=== PATIENT | male | born 1945 | race Caucasian/White ===

== ENCOUNTER → 2017-10-10 09:14 | Outpatient (POV) | payer MEDICARE, OTHER, SELFPAY | PROVIDERS: Visit Provider Podiatrist | DX: Z00.00 Encounter for general adult medical examination without abnormal findings (principal) ==

== ENCOUNTER → 2017-12-23 07:41 | Outpatient (CLI) | payer MEDICARE, SELFPAY ==
--- NOTE | 2017-12-23 07:44 | CI_ITS ---
Cerebrovascular Exam Indications: 780.4 Dizziness and giddiness. IMPRESSIONS 1. The bilateral vertebral arteries are patent with normal antegrade flow. 2. Study suggests less than 20% stenosis involving the right internal carotid artery and the left internal carotid artery. Carotid duplex study. Complete study and Doppler flow study including spectral analysis, color and salas scale imaging. Height: Height: 175.3cm. Height: 69in. Weight: Weight: 79.4kg. Weight: 174.6lb. Body mass index: BMI: 25.8kg/m^2. Body surface area: BSA: 1.98m^2. Location: Vascular laboratory. Patient status: Outpatient. Tables: Arterial flow: + +--------+--------+ Location V sys V ed + +--------+--------+ Right CCA - proximal 97.4cm/s 22cm/s + +--------+--------+ Right CCA - distal 90.4cm/s 22.8cm/s + +--------+--------+ Right ECA 77.3cm/s -------- + +--------+--------+ Right ICA - proximal 74.6cm/s 21.2cm/s + +--------+--------+ Right ICA - mid 58.9cm/s 20.4cm/s + +--------+--------+ Right ICA - distal 97cm/s 30.9cm/s + +--------+--------+ Right vertebral 37.9cm/s -------- + +--------+--------+ Left CCA - proximal 98.4cm/s 20.4cm/s + +--------+--------+ Left CCA - distal 76.6cm/s 19cm/s + +--------+--------+ Left ECA 133cm/s -------- + +--------+--------+ Left ICA - proximal 63.2cm/s 21.8cm/s + +--------+--------+ Left ICA - mid 81.5cm/s 26cm/s + +--------+--------+ Left ICA - distal 82.9cm/s 26.7cm/s + +--------+--------+ Left vertebral 46.4cm/s -------- + +--------+--------+ Velocity ratios: + + + + + + Right, V sys Right, V ed Left, V sys Left, V ed + + + + + + Max ICA/dist CCA 1.07 1.36 1.08 1.41 + + + + + + (Report amended ) Electronically signed by: Viral Weeks [id number]
--- NOTE | 2017-12-23 08:34 | US_ITS ---
US aorta HISTORY: Screening for aortic aneurysm ITS.REASON: AAA WITHOUT RUPTURE FINDINGS: Upper abdominal aorta: 1.8 x 1.3 cm Mid abdominal aorta: 1.6 x 1.4 cm Lower abdominal aorta: 1 x 1 cm Common iliacs: Less than 1 cm each IMPRESSION: Unremarkable abdominal ultrasound with no evidence of abdominal aortic aneurysm
== END ==
PROVIDERS: PCP Family Medicine; Visit Provider Nurse Practitioner Family
DX: R42 Dizziness and giddiness (principal)
CPT/HCPCS: 76770; 93880

== ENCOUNTER → 2018-10-28 08:39 | Outpatient (POV) | payer MEDICARE, SELFPAY | PROVIDERS: Visit Provider Dermatology | DX: Z00.00 Encounter for general adult medical examination without abnormal findings (principal) ==

== ENCOUNTER → 2019-05-05 08:53 | Outpatient (POV) | payer MEDICARE, SELFPAY | PROVIDERS: Visit Provider Dermatology | DX: Z00.00 Encounter for general adult medical examination without abnormal findings (principal) ==

== ENCOUNTER → 2020-05-10 10:14 | Outpatient (POV) | payer MEDICARE, SELFPAY | PROVIDERS: Visit Provider Dermatology | DX: Z00.00 Encounter for general adult medical examination without abnormal findings (principal) ==

== ENCOUNTER 2020-08-25 16:38 | Emergency (ER) | payer MEDICARE, SELFPAY ==
[2020-08-25 16:50] VITALS: BP 133/76; PULSE 86; RESP 16; TEMP 36.6; O2SAT 98; BMI 28.8
--- NOTE | 2020-08-25 17:05 | HMH.EDUTC ---
[facility] [place] Clinical Impression: Encounter for laboratory testing for COVID-19 virus Disposition: Home, Self-Care Condition on Discharge: Good Instructions: DI for COVID-19 (Suspected or Confirmed ), Coronavirus Disease 2019, Preventing the Spread of Coronavirus Discharge Instructions Additional Instructions: *Monitor Temp, Over the counter Motrin or Tylenol as directed/as needed Tylenol every 4 hours and Motrin every 6 hours (as long as your family doctor has told you that you can take it) for fever or pain. and straight to ER if unable to lower temp less than 101.0 after medication given Follow up IMMEDIATELY for new or worsening symptoms or no Noticeable improvement over the next 48-72 hours. 911 for difficulty breathing or swallowing You were tested for today for COVID19 your test result should be back in the next 24-48 hours, you may call to the [facility] to see if your test results are back in the next 48 hours [phone] [facility] hours are 9am-9pm You was given a handout with instructions for Self Quarantine and Self isolation for while you wait on test results and what to do if they are positive If you are positive the Health Dept will be contacting you also Referrals: Crissy Noel APRN [Primary Care Provider] - As needed Time of Disposition: 17:07 Medical Decision Making - Kishan Inquiry Pt receiving controlled substance: No Kishan was queried for this patient: No Vital Signs: 08/25/20 16:50 Temperature 97.8 F Temperature Source Oral Pulse Rate [Right Brachial] 86 Respiratory Rate 16 Blood Pressure [Right Arm] 133/76 Blood Pressure Mean [Right Arm] 95 Blood Pressure Source [Right Arm] Automatic Cuff Blood Pressure Position [Right Arm] Sitting 02 Sat by Pulse Oximetry 98 Oxygen Delivery Method Room Air Orders (Tests/Meds): ORDERS Category Date Time Status Covid-19 Nasal PCR Sendout [facility] Stat Lab 08/25/20 16:47 [place] [facility] [place] - General Stated complaint: covid test Time Seen by Provider: 08/25/20 17:05 Mode of Arrival: Ambulatory Source of Information: Patient Limitations: No Limitations Description of Symptoms (Recalled from Triage Doc. by RN): REQUESTING COVID TEST. DENIES SYMPTOMS OR EXPOSURE HEENT Symptoms (Recalled from RN notes): No Resp Symptoms (Recalled from RN notes): No Skin Symptoms (Recalled from RN notes): No MS Symptoms (Recalled from RN notes): No Functional Status (Recalled from RN notes): WNL - History of Present Illness Provider Complaint: Patient state that he is wanting to get tested for COVID state that his has been having conjunctivitis and he heard that is a symptom of COVID so he wanted to get tested Denies any symptoms - Related Data Allergies Allergy/AdvReac Type Severity Reaction Status Date / Time CODEINE Allergy Unknown NA-NAUSEA/V Uncoded 07/30/17 15:09 OMITING From PERCOCET Allergy Unknown NA-NAUSEA/V Uncoded 07/30/17 15:09 OMITING TYLOXAPOL Allergy Unknown NA-NAUSEA/V Uncoded 07/30/17 15:09 OMITING - Worker's Comp Is this a Worker's Comp case?: No [facility] History - Hepatitis A Screen Drug use history?: No High risk sexual behaviors?: No History of sexually transmitted infection?: No Currently employed?: No Childcare worker?: No Do you have indoor plumbing?: Yes Do you have electricity?: Yes Attestation statement:: This patient has been screened for Hepatitis A risk factors. I have reviewed the patient's past medical history: Yes - Social History Alcohol Intake: never Occupational Status: other ROS Obtained: Yes All systems reviewed & no additional complaints, Yes Systems reviewed as appropriate & no additional complaints - Constitutional Constitutional: Reports system reviewed and no additional complaints, except as docu, Denies body ache, Denies chills, Denies fever(s), Denies headache(s) - ENT Ears, Nose, Mouth, and Throat: Reports system reviewed and no additional complaints, except as docu, Denies nasal
[2020-08-25 17:09] VITALS: BP 133/76; PULSE 86; RESP 16; TEMP 36.6; O2SAT 98
[2020-08-27 11:58] LABS: Covid-19 Nasal PCR Sendout P&C Negative
== END 2020-08-25 17:30 | disposition home or self-care (01) ==
PROVIDERS: Emergency Provider Nurse Practitioner; PCP Nurse Practitioner Family
DX: Z20.822 Contact with and (suspected) exposure to COVID-19 (principal); E03.9 Hypothyroidism, unspecified; F41.8 Other specified anxiety disorders; Z88.5 Allergy status to narcotic agent
CPT/HCPCS: G0463; 99202; U0004

== ENCOUNTER 2023-04-06 15:13 | Emergency (ER) | payer MEDICARE, SELFPAY ==
[2023-04-06 15:14] VITALS: BP 155/72; PULSE 97; RESP 18; TEMP 36.8; O2SAT 95; BMI 28.4
--- NOTE | 2023-04-06 15:23 | EXP.UTC ---
Discharge Plan Disposition Patient Disposition: Home, Self-Care Condition: Fair Prescriptions Prescriptions: New levofloxacin 500 mg tablet 500 mg PO DAILY Qty: 10 0RF ondansetron 8 mg tablet,disintegrating 8 mg PO TID PRN (Reason: Nausea) Qty: 30 0RF Referrals Follow up/Referrals: Provider,Referral, [Primary Care Provider] - See instructions Activity Restrictions/Add. Instructions Additional Instructions/Restrictions: Follow up with Natalia Noel Saturday Urine culture results should be available Saturday as well Return to ER if severe pain, fever, inability to keep liquids down, etc Clinical Impressions Clinical Impression: Acute UTI Instructions Patient Instructions: DI for Urinary Tract Infection (UTI) Discharge ED Provider: Silvia Pruett [facility] General Stated complaint: poss uti Time Seen by Provider: 04/06/23 15:54 History of Present Illness Provider Complaint: Patient has had urinary frequency, dysuria X 5 days. Has had fever X 2-3 days. Nausea, no appetite. Mild back pain. Some diarrhea. Now has urinary urgency as well. No history of kidney stones. No history of bladder or prostate issues. Has been drinking cranberry juice, chicken broth. That still upsets his stomach, but is tolerable. Solid food makes him sick. Feels terrible. Urine has been cloudy, but has not noticed blood or dark color. Onset (ago): day(s) (5) Location: pelvis Radiation: non-radiation Severity: moderate Severity scale (1-10): 6 Relieving factors: none Exacerbating factors: eating Associated symptoms: fever/chills, loss of appetite, malaise and nausea/vomiting Treatments prior to arrival: none Related Data Previous Rx's Medication Instructions Recorded levofloxacin 500 mg tablet 500 mg PO DAILY #10 tabs 04/06/23 ondansetron 8 mg disintegrating 8 mg PO TID PRN Nausea #30 tabs 04/06/23 tablet Allergies Allergy/AdvReac Type Severity Reaction Status Date / Time CODEINE Allergy Unknown NA-NAUSEA/V Uncoded 07/30/17 15:09 OMITING From PERCOCET Allergy Unknown NA-NAUSEA/V Uncoded 07/30/17 15:09 OMITING TYLOXAPOL Allergy Unknown NA-NAUSEA/V Uncoded 07/30/17 15:09 OMITING [facility] Disclaimer: The information contained in this section may have been updated after the patient was seen, as this information can be updated by other users. Social History Smoking Status: Unknown if ever smoked alcohol intake: never current occupational status: other Travel in the last 8 weeks: None ROS Obtained: Yes All systems reviewed & no additional complaints except as documented Constitutional Constitutional: Reports anorexia, Reports body ache, Reports chills, Reports fever(s) and Reports poor appetite Gastrointestinal Gastrointestingal: Reports diarrhea and nausea Genitourinary Male Genitourinary: Denies flank pain, Denies testicular pain, Reports urinary frequency and Reports urinary urgency Physical Exam General General appearance: alert and in no apparent distress Head Head exam: atraumatic, normocephalic and normal inspection Eye Eye exam: Present normal appearance, PERRL and EOMI ENT ENT exam: Present normal exam, normal oropharynx, mucous membranes moist, TM's normal bilaterally and normal external ear exam Neck Neck exam: Present normal inspection, full ROM and trachea midline; Absent meningismus or lymphadenopathy Chest Chest inspection: Present normal inspection and symmetric chest wall rise; Absent tenderness Respiratory Respiratory exam: Present normal lung sounds bilaterally; Absent respiratory distress Cardiovascular Cardiovascular exam: Present regular rate and normal rhythm; Absent JVD Abdominal Exam Abdominal exam: Present soft, tenderness and normal bowel sounds; Absent distention or guarding Abdominal tenderness: Present suprapubic Extremities Exam Extremities exam: Present normal inspection, full ROM and normal capillary refill; Absent calf tenderness
[2023-04-06 16:18] LABS: Microscopic, Urine URINE MICROSCOPIC (MICROSCOPIC)
[2023-04-06 16:20] LABS: Appearance,Urine CLOUDY (Clear); Bilirubin,Urine Negative (Negative); Blood, Urine 3+ (Negative); Color,Urine YELLOW (Yellow); Glucose,Urine (UA) Negative (Negative); Ketones,Urine Negative (Negative); Leukocyte Esterase,Urine 2+ (Negative); Nitrate,Urine Negative (Negative); Protein,Urine 2+ (Negative)
[2023-04-06 16:24] LABS: Bacteria,Urine 1+ /lpf; Squamous Epithelial Cell,Urine Occasional #/hpf (0-5); WBC,Urine TNTC #/hpf (0-3)
[2023-04-06 16:47] VITALS: BP 155/72; PULSE 97; RESP 18; TEMP 36.8; O2SAT 95
== END 2023-04-06 16:47 | disposition home or self-care (01) ==
PROVIDERS: Emergency Provider Physician Assistant
DX: N39.0 Urinary tract infection, site not specified (principal); B96.89 Other specified bacterial agents as the cause of diseases classified elsewhere; M54.59 Other low back pain; R50.9 Fever, unspecified; R11.0 Nausea; R19.7 Diarrhea, unspecified
CPT/HCPCS: 81001; 87086; 87088; 87186; 99212; 99214; G0463

== ENCOUNTER → 2023-04-17 14:23 | Outpatient (CLI) | payer MEDICARE, SELFPAY ==
[2023-04-17 14:26] LABS: Alanine Aminotransferase 28 U/L (12-78); Albumin Level 4.3 g/dl (3.5-5.0); Albumin/Globulin Ratio 1.2 (1.1-1.8); Alkaline Phosphatase 149 U/L (38-126); Amylase 79 U/L (30-110); Anion Gap 18.2 mEq/L (5-15); Aspartate Amino Transferase 35 U/L (17-59); Bilirubin,Total 0.8 mg/dl (0.2-1.3); Blood Urea Nitrogen 22 mg/dl (9-20); Calcium 9.5 mg/dl (8.4-10.2); Carbon Dioxide 27 mmol/L (22.0-30.0); Chloride 99 mmol/L (98-107); Estimated Glomerular Filt Rate 59 ml/min (>60); GFR (African American) 71 ML/MIN (>60); Globulin 3.7 g/dL (1.3-3.2); Glucose 84 mg/dl (74-100); Lipase 134 U/L (23-300); Potassium 5.2 mmoL/L (3.5-5.1); Sodium 139 mmol/L (136-145)
[2023-04-17 16:49] LABS: Basophils % 0.6 % (0.1-2.0); Eosinophils # 0.2 K/mm3 (0.0-0.4); Eosinophils % 2.5 % (0.1-12.0); Hematocrit 43.5 % (42.0-52.0); Hemoglobin 13.7 g/dL (14.1-18.0); Lymphocytes # 1.3 K/mm3 (0.7-4.5); Lymphocytes % 22.2 % (10-50); Mean Corpuscular HGB Conc 31.5 g/dL (31.8-35.4); Mean Corpuscular Hemoglobin 30.9 pg (27.0-31.2); Mean Platelet Volume 9.8 fl (7.4-10.4); Monocytes # 0.4 K/mm3 (0.1-1.0); Neutrophils # 4.1 K/mm3 (1.8-7.8); Neutrophils % 68.7 % (37.0-80.0); Platelet Count 590 K/mm3 (142-424); Red Blood Count 4.43 M/mm3 (4.60-6.20); Red Cell Distribution Width 13.2 % (11.5-17.5); White Blood Count 5.9 K/mm3 (4.8-10.8)
== END ==
PROVIDERS: PCP Nurse Practitioner Family; Visit Provider Nurse Practitioner Family
DX: N39.0 Urinary tract infection, site not specified (principal); R11.0 Nausea; R53.1 Weakness
CPT/HCPCS: 80053; 82150; 83690; 85025; 87086

== ENCOUNTER → 2023-05-14 16:08 | Outpatient (CLI) | payer MEDICARE, SELFPAY ==
[2023-05-14 14:13] LABS: Basophils % 0.6 % (0.1-2.0); Eosinophils # 0.3 K/mm3 (0.0-0.4); Eosinophils % 5.3 % (0.1-12.0); Hematocrit 41.6 % (42.0-52.0); Hemoglobin 13.4 g/dL (14.1-18.0); Lymphocytes # 1.2 K/mm3 (0.7-4.5); Lymphocytes % 23.2 % (10-50); Mean Corpuscular HGB Conc 32.2 g/dL (31.8-35.4); Mean Corpuscular Volume 96.4 fl (80-94); Mean Platelet Volume 9.1 fl (7.4-10.4); Monocytes # 0.4 K/mm3 (0.1-1.0); Monocytes % 6.8 % (1.7-9.3); Neutrophils # 3.4 K/mm3 (1.8-7.8); Neutrophils % 64.1 % (37.0-80.0); Platelet Count 230 K/mm3 (142-424); Red Blood Count 4.32 M/mm3 (4.60-6.20); Red Cell Distribution Width 14.3 % (11.5-17.5); White Blood Count 5.3 K/mm3 (4.8-10.8)
[2023-05-14 14:42] LABS: Chloride 102 mmol/L (98-107); Potassium 4.7 mmoL/L (3.5-5.1); Sodium 139 mmol/L (136-145)
[2023-05-14 14:44] LABS: Alanine Aminotransferase 22 U/L (12-78); Aspartate Amino Transferase 32 U/L (17-59); Blood Urea Nitrogen 25 mg/dl (9-20); Estimated Glomerular Filt Rate 59 ml/min (>60); GFR (African American) 71 ML/MIN (>60)
[2023-05-14 14:45] LABS: Albumin Level 4.1 g/dl (3.5-5.0); Albumin/Globulin Ratio 1.3 (1.1-1.8); Alkaline Phosphatase 92 U/L (38-126); Anion Gap 15.7 mEq/L (5-15); Bilirubin,Total 0.6 mg/dl (0.2-1.3); Calcium 9.1 mg/dl (8.4-10.2); Carbon Dioxide 26 mmol/L (22.0-30.0); Globulin 3.1 g/dL (1.3-3.2); Glucose 108 mg/dl (74-100); Total Protein,Serum 7.2 g/dl (6.3-8.2)
[2023-05-14 15:20] LABS: Ferritin 262 ng/ml (17.9-464)
== END ==
PROVIDERS: PCP Nurse Practitioner Family; Visit Provider Nurse Practitioner Family
DX: D50.9 Iron deficiency anemia, unspecified (principal); R74.8 Abnormal levels of other serum enzymes
CPT/HCPCS: 80053; 82728; 85025

== ENCOUNTER 2024-01-31 09:48 | Outpatient (CLI) | payer MEDICARE, SELFPAY ==
[2024-01-31 17:23] LABS: Basophils # 0.1 K/mm3 (0-0.2); Basophils % 1.1 % (0.1-2.0); Eosinophils # 0.2 K/mm3 (0.0-0.4); Eosinophils % 4.3 % (0.1-12.0); Hematocrit 46.6 % (42.0-52.0); Lymphocytes # 1.2 K/mm3 (0.7-4.5); Lymphocytes % 23.1 % (10-50); Mean Corpuscular HGB Conc 32.3 g/dL (31.8-35.4); Mean Corpuscular Hemoglobin 32.7 pg (27.0-31.2); Mean Corpuscular Volume 101.4 fl (80-94); Mean Platelet Volume 9.6 fl (7.4-10.4); Monocytes # 0.4 K/mm3 (0.1-1.0); Monocytes % 7.2 % (1.7-9.3); Neutrophils # 3.3 K/mm3 (1.8-7.8); Neutrophils % 64.2 % (37.0-80.0); Platelet Count 247 K/mm3 (142-424); Red Cell Distribution Width 13.4 % (11.5-17.5); White Blood Count 5.1 K/mm3 (4.8-10.8)
[2024-01-31 17:47] LABS: Chloride 103 mmol/L (98-107); Sodium 140 mmol/L (136-145)
[2024-01-31 17:48] LABS: Potassium 5.5 mmoL/L (3.5-5.1)
[2024-01-31 17:50] LABS: Alanine Aminotransferase 19 U/L (12-78); Albumin Level 4.7 g/dl (3.5-5.0); Albumin/Globulin Ratio 1.6 (1.1-1.8); Alkaline Phosphatase 92 U/L (38-126); Anion Gap 16.5 mEq/L (5-15); Aspartate Amino Transferase 32 U/L (17-59); Bilirubin,Total 0.6 mg/dl (0.2-1.3); Blood Urea Nitrogen 22 mg/dl (9-20); Calcium 9.6 mg/dl (8.4-10.2); Carbon Dioxide 26 mmol/L (22.0-30.0); Cholesterol 183 mg/dl (140-200); Estimated Glomerular Filt Rate 54 ml/min (>60); GFR (African American) 65 ML/MIN (>60); Glucose 87 mg/dl (74-100); Total Protein,Serum 7.7 g/dl (6.3-8.2); Triglycerides 139 mg/dl (30-150); VLDL Cholesterol 28 mg/dL (0-40)
[2024-01-31 17:51] LABS: Chol/HDL Ratio 4.3 (1-3.5); HDL Cholesterol 43 mg/dl (40-60); Magnesium 2.3 mg/dl (1.6-2.3)
[2024-01-31 18:02] LABS: Direct LDL Cholesterol 102.68 mg/dL (100-129)
[2024-01-31 18:21] LABS: Thyroid Stimulating Hormone 2.09 uIU/mL (0.465-4.68)
[2024-01-31 18:25] LABS: Ferritin 127 ng/ml (17.9-464)
[2024-01-31 18:40] LABS: Prostate Specific Ag Screen 0.9 ng/ml (0.0-4.0)
[2024-01-31 18:59] LABS: Vitamin B12 805 pg/mL (239-931)
== END 2024-01-31 23:59 | disposition home or self-care (01) ==
LOC: LAB.DROPOF 02-03 09:52
PROVIDERS: PCP Nurse Practitioner Family; Visit Provider Nurse Practitioner Family
DX: E78.5 Hyperlipidemia, unspecified (principal); R53.1 Weakness; R74.8 Abnormal levels of other serum enzymes; M62.838 Other muscle spasm; D50.9 Iron deficiency anemia, unspecified; Z12.5 Encounter for screening for malignant neoplasm of prostate; E03.9 Hypothyroidism, unspecified; Z68.29 Body mass index [BMI] 29.0-29.9, adult
CPT/HCPCS: 80053; 80061; 82607; 82728; 83735; 84443; 85025; G0103

== ENCOUNTER 2024-02-10 13:23 | Outpatient (CLI) | payer MEDICARE, SELFPAY ==
--- NOTE | 2024-02-10 13:24 | CA_ITS ---
FINAL REPORT TECHNIQUE: Duplex color Doppler with spectral analysis performed of the lower extremities. CLINICAL HISTORY: NUMBNESS,WEAKNESS BLE'S,HLD,PAIN BLE'S COMPARISON: None FINDINGS: RIGHT LOWER EXTREMITY: Velocities cm/sec: SOCIAL DIRECTOR: 89 SFA Prox: 90.5 SFA Mid: 102.5 SFA Dist: 124 POP: 54 Awais: 62 RIVER CAPTAIN: 74 Waveforms are triphasic and biphasic. LEFT LOWER EXTREMITY: Velocities cm/sec: SOCIAL DIRECTOR: 71 SFA Prox: 98 SFA Mid: 128 SFA Dist: 104 POP: 84 Awias: 71 RIVER CAPTAIN: 69 Waveforms are triphasic and biphasic. IMPRESSION: No significant peripheral artery disease. Reviewed, Interpreted and Dictated by Micah Joseph III, MD Transcribed by Candy Huggins Authenticated and [facility]
== END 2024-02-10 23:59 | disposition home or self-care (01) ==
LOC: RT 13:24
PROVIDERS: PCP Nurse Practitioner Family; Visit Provider Nurse Practitioner Family
DX: I73.9 Peripheral vascular disease, unspecified (principal); M79.661 Pain in right lower leg; M79.662 Pain in left lower leg; R29.898 Other symptoms and signs involving the musculoskeletal system
CPT/HCPCS: 93925

== ENCOUNTER 2024-02-17 09:07 | Outpatient (CLI) | payer MEDICARE, SELFPAY ==
[2024-02-17 11:08] LABS: Potassium 4.5 mmoL/L (3.5-5.1)
== END 2024-02-17 23:59 | disposition home or self-care (01) ==
LOC: LAB.DROPOF 09:07
PROVIDERS: PCP Nurse Practitioner Family; Visit Provider Nurse Practitioner Family
DX: E87.5 Hyperkalemia (principal)
CPT/HCPCS: 36415; 84132

== ENCOUNTER 2024-02-28 08:58 | Outpatient (CLI) | payer MEDICARE, SELFPAY ==
--- NOTE | 2024-02-28 08:59 | XR_ITS ---
FINAL REPORT TECHNIQUE: Bone densitometry calculations of the lumbar spine and left hip were obtained. CLINICAL HISTORY: screening bone density COMPARISON: None FINDINGS: Using L1-4, the bone mineral density of the spine is 1.552 g/cm2, corresponding to T-score of 4.3 and a Z score of 5.3. This is within the range of normal. Using the left hip, the bone mineral density of the femoral neck is 0.889 g/cm2, corresponding to a T-score of -1 and a Z-score of -0.1. This is within the range of osteopenia. NOTE: T-score: Standard deviation compared with peak bone mass of young adult mean. *Following the recommendations of the International Society of Bone densitometry, classification of hip BMD is based on the lower of two T-scores; total hip or femoral neck. IMPRESSION: 1. Bone mineral density of the lumbar spine within the range of normal. 2. Bone mineral density of the left femoral neck within the range of osteopenia. Reviewed, Interpreted and Dictated by Aishwarya Alegre MD Transcribed by Candy Huggins Authenticated and [facility]
== END 2024-02-28 23:59 | disposition home or self-care (01) ==
LOC: RAD 08:59
PROVIDERS: PCP Nurse Practitioner Family; Visit Provider Nurse Practitioner Family
DX: M51.36 Other intervertebral disc degeneration, lumbar region (principal); Z13.820 Encounter for screening for osteoporosis; M54.50 Low back pain, unspecified; Z91.89 Other specified personal risk factors, not elsewhere classified; M85.852 Other specified disorders of bone density and structure, left thigh
CPT/HCPCS: 77080

== ENCOUNTER 2025-02-15 14:09 | Outpatient (CLI) | payer MEDICARE, SELFPAY ==
--- OUTSIDE RECORDS SUMMARY | 2025-01-07 13:48 | XMS_ITS | Encounter Summary ---
Author Organization [employer] ([place], [place], [place], [place]) Address [address] [place] [address] Care Team Providers Care Copy Worker Name Role Phone Unavailable Primary Care Provider Unavailabl e Reason for Referral * CAT Scan (Routine) - New Request Specialty Diagnoses / Procedures Referred By Contac t Referred To Contact Radiology Diagnoses Pain in right knee Procedures CT lower extremity without IV contrast right Shaw Pappas MD [address] [place] [address] Phone: tel: fax: Referral ID Status Reason Start Date Expiration Date V isits Requested Visits Authorized [id number] New Request 01/06/2025 01/06/2026 1 1 Reason for Visit * CAT Scan (Routine) - New Request Specialty Diagnoses / Procedures Referred By Wai alberto Referred To Contact Radiology Diagnoses Pain in right knee Procedures CT lower extremity without IV contrast right Shaw Pappas MD [address] [place] [id number] Phone: tel: fax: Referral ID Status Reason Start Date Expiration Date V isits Requested Visits Authorized [id number] New Request 01/06/2025 01/06/2026 1 1 Encounter Details Date Type Department Care Team (Late st Contact Info) Description 01/07/2025 1:48 PM EDT - 01/07/2025 11:59 PM EDT Hospital Encounter [facility] [address] [place] [address] Shaw Pappas MD [address] [place] [address] Pain in right knee Discharge Disposition: Home or Self Care Social History Tobacco Use Types Packs/Day Years Used Date Smoking Tobacco: Never Assessed Sex and Gender Information Value Date Recorded Sex Assigned at Not on file Legal Sex Male 1:27 PM CDT Gender Identity Not on file Sexual Orientation Not on file documented as of this encounter Plan of Treatment Not on file documented as of this encounter Procedures Procedure Name Priority Date/Time Associated Diagnosis Comments CT LOWER EXTREMITY WITHOUT IV CONTRAST RIGHT Routine 01/07/2025 2:24 PM EDT Pain in right knee documented in this encounter Results * CT lower extremity without IV contrast right (01/07/2025 2:24 PM EDT) Anatomical Region Laterality Modality Lower Extremity, Hip, Femur, Leg, Knee, Ankle, Foot Computed Tomography (CT) 01/07/2025 3:22 PM EDT Impressions 01/07/2025 3:27 PM EDT Degenerative joint disease. Images reviewed, interpreted, and dictated by Dr. Awais Klein. Transcribed by Farideh Gonzalez PA-C. Narrative 01/07/2025 3:[address] SCAN RIGHT LOWER EXTREMITY 01/07/2025 2:01 PM HISTORY: Knee osteoarthritis. Conformis protocol. COMPARISON: None. PROCEDURE: Axial images were obtained through the lower extremity by computed tomography. Sagittal and coronal reconstruction images were performed. This study was performed with techniques to keep radiation doses as low as reasonably achievable, (ALARA). Individualized dose reduction techniques using automated exposure control or adjustment of mA and/or kV according to the patient size were employed. FINDINGS: There is no fracture. There is a joint effusion. There is significant degenerative change. Procedure Note Alondra Klein MD - 01/07/2025 CT SCAN RIGHT LOWER EXTREMITY 01/07/2025 2:01 PM HISTORY: Knee osteoarthritis. Conformis protocol. COMPARISON: None. PROCEDURE: Axial images were obtained through the lower extremity by computed tomography. Sagittal and coronal reconstruction images were performed. This study was performed with techniques to keep radiation doses as low as reasonably achievable, (ALARA). Individualized dose reduction techniques using automated exposure control or adjustment of mA and/or kV according to the patient size were employed. FINDINGS: There is no fracture. There is a joint effusion. There is significant degenerative change. IMPRESSION: Degenerative joint disease. Images reviewed, interpreted, and dictated by Dr. Awais Klein. Transcribed by Farideh Gonzalez PA-C. us Shaw Pappas MD IMG CT ORDERABLES Final Result documented in this encounter Visit Diagnoses Diagnosis Pain in right knee documented in this encounter
[2025-02-15 14:03] LABS: Hematocrit 44.7 % (42.0-52.0); Hemoglobin 14.1 g/dL (14.1-18.0); Immature Granulocytes % 0.3 %; Mean Corpuscular HGB Conc 31.5 g/dL (31.8-35.4); Mean Corpuscular Hemoglobin 30.9 pg (27.0-31.2); Mean Corpuscular Volume 97.8 fl (80-94); Nucleated Red Blood Cells % 0 %; Platelet Count 186 K/mm3 (142-424); Red Blood Count 4.57 M/mm3 (4.60-6.20); Red Cell Distribution Width-SD 45.9 fL; White Blood Count 6.2 K/mm3 (4.8-10.8)
--- OUTSIDE RECORDS SUMMARY | 2025-02-15 14:13 | XMS_ITS | Referral Summary ---
Author Organization [employer] ([place], [place], [place], [place]) Address [address] [place] [address] Care Team Providers Care Regional Agronomist Name Role Phone Unavailable Primary Care Provider Unavailabl e Encounters Date Type Department Care Team Description 01/07/2025 1:48 PM EDT - 01/07/2025 11:59 PM EDT Hospital Encounter [facility] - [address] [facility] [address] [place] [address] Shaw Pappas MD Pain in right knee Discharge Disposition: Home or Self Care from Last 3 Months Social History Tobacco Use Types Packs/Day Years Used Date Smoking Tobacco: Never Assessed Sex and Gender Information Value Date Recorded Sex Assigned at Not on file Legal Sex Male 1:27 PM CDT Gender Identity Not on file Sexual Orientation Not on file Plan of Treatment Not on file Procedures Procedure Name Priority Date/Time Associated Diagnosis Comments CT LOWER EXTREMITY WITHOUT IV CONTRAST RIGHT Routine 01/07/2025 2:24 PM EDT Pain in right knee from Last 3 Months Results * CT lower extremity without IV [...] Pappas MD IMG CT ORDERABLES Final Result from Last 3 Months
--- OUTSIDE RECORDS SUMMARY | 2025-02-15 14:13 | XMS_ITS | Clinical Summary ---
Author Organization [employer] ([place], [place], [place], [place]) Address [address] [place] [address] Care Team Providers Care Nurseryman Assistant Name Role Phone Unavailable Primary Care Provider Unavailabl e Encounters Date Type Department Care Team Description 01/07/2025 1:48 PM EDT - 01/07/2025 11:59 PM EDT Hospital Encounter [facility] CT - [address] [facility] [address] [place] [address] Shaw Pappas MD Pain in [...] Orientation Not on file Plan of Treatment Health Maintenance Due Date Last Done Comments Depression Screening (12+) 1959 Tobacco Cessation Counseling and Screening (12+) 1959 Hepatitis C Screening 1965 Pneumococcal 50+ years (1 of 1 - PCV) 1997 DTAP/TDAP/TD VACCINES (2 - T d or Tdap) 10/15/2006 10/15/1996 Respiratory Syncytial Virus (RSV) Adult or (1 - 1-dose 75+ series) 2022 Falls Risk Screening 08/12/2024 COVID-19 VACCINE (2023-2 5 season) 2024 05/19/2024, 05/31/2023, 06/11/2022, Additional history exists Influenza Vaccine (#1) 2025 , 05/31/2023, 05/29/2022, Additional history exists Shingles Vaccine (Zoster) Completed 10/12/2021, Procedures Procedure Name Priority Date/Time Associated Diagnosis [...] Awais Klein. Transcribed by Farideh Gonzalez PA-C. Shaw Pappas MD [facility] [place] ORDERABLES Final Result from Last 3 Months
[2025-02-15 14:31] LABS: Alanine Aminotransferase 15 U/L (12-78); Albumin Level 4.8 g/dl (3.5-5.0); Albumin/Globulin Ratio 1.7 (1.1-1.8); Alkaline Phosphatase 98 U/L (38-126); Anion Gap 18.4 mEq/L (5-15); Aspartate Amino Transferase 27 U/L (17-59); Bilirubin,Total 0.8 mg/dl (0.2-1.3); Blood Urea Nitrogen 23 mg/dl (9-20); Calcium 9.9 mg/dl (8.4-10.2); Carbon Dioxide 30 mmol/L (22.0-30.0); Chloride 96 mmol/L (98-107); Cholesterol 173 mg/dl (140-200); Creatinine,Serum 1.30 mg/dl (0.66-1.25); Estimated Glomerular Filt Rate 54 ml/min (>60); GFR (African American) 65 ML/MIN (>60); Globulin 2.9 g/dL (1.3-3.2); Glucose 93 mg/dl (74-100); HDL Cholesterol 38 mg/dl (40-60); Potassium 5.4 mmoL/L (3.5-5.1); Sodium 139 mmol/L (136-145); Total Protein,Serum 7.7 g/dl (6.3-8.2); Triglycerides 182 mg/dl (30-150)
[2025-02-15 14:47] LABS: Free T4 (Free Thyroxine) 1.19 ng/dl (0.78-2.19)
[2025-02-15 15:02] LABS: Thyroid Stimulating Hormone 3.02 uIU/mL (0.465-4.68)
[2025-02-15 15:21] LABS: Vitamin B12 820 pg/mL (239-931)
[2025-02-15 15:35] LABS: Ferritin 145 ng/ml (17.9-464)
== END 2025-02-15 23:59 | disposition home or self-care (01) ==
LOC: LAB.DROPOF 14:09
PROVIDERS: PCP Nurse Practitioner Family; Visit Provider Nurse Practitioner Family
DX: Z00.00 Encounter for general adult medical examination without abnormal findings (principal); E78.5 Hyperlipidemia, unspecified; D50.9 Iron deficiency anemia, unspecified; E03.9 Hypothyroidism, unspecified; Z12.5 Encounter for screening for malignant neoplasm of prostate
CPT/HCPCS: 80053; 80061; 82607; 82728; 84439; 84443; 85025; G0103